=== PATIENT | female | born 1950 | race Caucasian/White ===

== ENCOUNTER 2019-12-09 07:05 | Emergency (ER) | payer MEDICARE, OTHER ==
[~2019-12-09] VITALS: Ht 170.2 cm; Wt 72.6 kg
[~2019-12-09 07:05] MED LIST: FLEXERIL PO; NORCO 5-325 TA1 EACH PO
[2019-12-09] MEDS ORDERED: NORCO 5-325 TA1 EAC1 PO (09:05)
[2019-12-09 09:34] VITALS: BP 93/52
== END 2019-12-09 09:36 | disposition home or self-care (01) ==
LOC: M.ERS 07:05
DX: S42.214A Unspecified nondisplaced fracture of surgical neck of right humerus, initial encounter for closed fracture (principal); S00.81XA Abrasion of other part of head, initial encounter; Z88.0 Allergy status to penicillin; W01.0XXA Fall on same level from slipping, tripping and stumbling without subsequent striking against object, initial encounter; Y93.89 Activity, other specified; Y92.098 Other place in other non-institutional residence as the place of occurrence of the external cause; Y99.8 Other external cause status